=== PATIENT | female | born 1945 | race Caucasian/White ===

== ENCOUNTER 2017-01-25 19:14 | Observation (INO) | payer MEDICARE, MEDICAID ==
[2017-01-25] MEDS ORDERED: Albuterol/Ipratropium 3.0-0.5 MG/3 ML Neb Soln NEB ONE (19:30)
[2017-01-25] MEDS ORDERED: methylPREDNISolone Sodium Succinate 125 MG/2 ML SDV IVPUSH ONE (19:30)
--- NOTE | 2017-01-25 19:32 | EDM.PDOC ---
ED HPI GENERAL MEDICAL PROBLEM - General Chief Complaint: Respiratory Problem Stated Complaint: TROUBLE BREATHING Time Seen by Provider: 01/25/17 19:25 Source of Information: Reports: Patient, EMS, Family History Limitations: Reports: Respiratory Distress - History of Present Illness INITIAL COMMENTS - FREE TEXT/NARRATIVE: 71 y.o.w.f. smoker with a H/O chronic bronchitis and COPD came by EMS tpo the ed due to worsening of SOB. No C/P no N/V/D or any other acute medical issue. Pt is not on prednison at this time. No other acute medical issues at this time. BP 173/53 RR 22 pulse ox 96% 0n 2 liters Temp 36.6 pulse 74 Onset Date: 01/23/17 Onset Time: 08:00 Duration: Hour(s):, Day(s):, Getting Worse, Intermittent Location: Reports: Chest - Related Data Allergies Allergy/AdvReac Type Severity Reaction Status Date / Time IVP dye Allergy Swelling Uncoded 01/25/17 23:30 Home Meds: Home Meds FLUoxetine [PROzac] 40 mg PO DAILY 08/17/13 [History] Clopidogrel Bisulfate [Clopidogrel] 75 mg PO DAILY 09/08/15 [History] Esomeprazole [NexIUM] 40 mg PO DAILY 09/08/15 [History] Metoprolol Succinate [Toprol XL 100mg] 150 mg PO DAILY 09/08/15 [History] Naproxen Sodium [Aleve] 220 mg DAILY 09/08/15 [History] atorvaSTATin [Lipitor] 40 mg PO DAILY 09/08/15 [History] metFORMIN [Glucophage] 500 mg PO BIDMEALS 09/08/15 [History] Hydrochlorothiazide 25 mg PO DAILY 01/25/17 [History] Lisinopril 40 mg PO DAILY 01/25/17 [History] Past Medical History Cardiovascular History: Reports: CAD, High Cholesterol, Hypertension, [place], Prior Cardiac Arrest, Stents, Other (See Below) Other Cardiovascular History: KS x 3, cardiac tamponade Gastrointestinal History: Reports: GERD, GI Bleed Genitourinary History: Reports: Chronic Renal Insuffiency, Renal Disease Other Genitourinary History: L kidney 'not functioning well' 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: Other (See Below) Other OB/BYN History: fallopian tube & ovary removed, also surgery on other fallopian tube Neurological History: Reports: Concussion, Neuropathy, Diabetic Psychiatric History: Reports: Anxiety, Depression Endocrine/Metabolic History: Reports: Diabetes, Type II, Obesity/BMI 30+ Hematologic History: Reports: Blood Transfusion(s) Oncologic (Cancer) History: Reports: Breast - Infectious Disease History Infectious Disease History: Reports: Chicken Pox, Measles, Mumps, Pertussis ( Whooping Cough), Shingles - Past Surgical History HEENT Surgical History: Reports: Oral Surgery, Tonsillectomy Cardiovascular Surgical History: Reports: Carotid Stents Female Surgical History: Reports: Salpingo-Oophorectomy Social & Family History - Tobacco Use Smoking Status *Q: Current Every Day Smoker Years of Tobacco use: 50 Packs/Tins Daily: 0.5 Used Tobacco, but Quit: No Second Hand Smoke Exposure: Yes - Caffeine Use Caffeine Use: Reports: Coffee, Tea - Alcohol Use Days Per Week of Alcohol Use: 0 - Recreational Drug Use Recreational Drug Use: No - Living Situation & Occupation Living situation: Reports: Single Occupation: Retired ED ROS GENERAL - Review of Systems Review Of Systems: See Below Constitutional: Reports: No Symptoms HEENT: Reports: No Symptoms Respiratory: Reports: Shortness of Breath Cardiovascular: Reports: No Symptoms Endocrine: Reports: No Symptoms GI/Abdominal: Reports: No Symptoms : Reports: No Symptoms Musculoskeletal: Reports: No Symptoms Skin: Reports: No Symptoms Neurological: Reports: No Symptoms Psychiatric: Reports: No Symptoms Hematologic/Lymphatic: Reports: No Symptoms Immunologic: Reports: No Symptoms ED EXAM, GENERAL - Physical Exam Exam: See Below Exam Limited By: No Limitations General Appearance: Alert, WD/WN, Moderate Distress Eye Exam: Bilateral Eye: Normal Inspection Ears: Normal External Exam Ear Exam: Bilateral Ear: Auricle Normal Nose: Normal Inspection Throat/Mouth: Normal Inspection Head: Atraumatic, Normocephalic Neck: Normal Inspection, Supple Respiratory/Chest: Respiratory Distress, Decreased Breath Sounds, Wheezing, Prolonged Expiration Cardiovascular: Normal Peripheral Pulses, Regular Rate, Rhythm, No Edema Peripheral Pulses: 1+: Radial (R) GI/Abdominal: Normal Bowel Sounds, Soft (Female) Exam: Deferred Rectal (Female) Exam: Deferred Back Exam: Normal Inspection, Full Range of Motion Extremities: Normal Inspection, Normal Range of Motion, Non-Tender, No Pedal Edema Neurological: Alert, Oriented, CN II-XII Intact, Normal Cognition Psychiatric: Normal Affect, Normal Mood Skin Exam: Warm, Dry, Intact, Normal Color Lymphatic: No Adenopathy Course - Vital Signs Text/Narrative:: 71 y.o.w.f. smoker with a H/O chronic bronchitis and COPD came by EMS tpo the ed due to worsening of SOB. No C/P no N/V/D or any other acute medical issue. Pt is not on prednison at this time. No other acute medical issues at this time. BP 173/53 RR 22 pulse ox 96% 0n 2 liters Temp 36.6 pulse 74 PE: Thin 71 y.o.w.f in resp distress with cough (prod) CXR: COPD, no infiltrate, official report is pending Impression: COPD exacerbation. Chronic bronchitis Tx: Duoneb, Albuterol neb. Solumedrol Reexam: improved 30% Plan: Admit tp mills for obs and Tx. Last Recorded V/S: Last Vital Signs Temp 36.4 C 01/26/17 04:32 Pulse 59 L 01/25/17 19:25 Resp 20 01/26/17 04:32 BP 163/76 H 01/26/17 04:32 Pulse Ox 94 L 01/26/17 04:32 - Orders/Labs/Meds Orders: Active Orders 24 hr Category Date Time Status Chest 1V Frontal [CR] Stat Exams 01/25/17 19:30 Taken Sodium Chloride 0.9% [Saline Flush] Med 01/25/17 19:41 Active 10 ml FLUSH ASDIRECTED PRN Saline Lock Insert [OM.PC] Routine Oth 01/25/17 19:41 Ordered Medication Orders Albuterol (Proventil Neb Soln) 2.5 mg NEB Q4H [facility] Last Admin: 01/26/17 04:32 Dose: 2.5 mg Admin: 01/26/17 01:27 Dose: 2.5 mg Lactated Ringer's (Ringers, Lactated) 1,000 mls @ 125 mls/hr IV ASDIRECTED [facility] Last Admin: 01/25/17 22:11 Dose: 125 mls/hr Methylprednisolone Sodium Succinate (Solu-Medrol) 125 mg IVPUSH Q8H [facility] Last Admin: 01/26/17 04:32 Dose: 125 mg Ondansetron HCl (Zofran Odt) 4 mg PO Q4H PRN PRN Reason: nausea, able to take PO Sodium Chloride (Saline Flush) 10 ml FLUSH ASDIRECTED PRN PRN Reason: Keep Vein Open Last Admin: 01/25/17 19:42 Dose: 10 ml Meds: Medications Generic Name Dose Route Start Last Admin Trade Name Freq PRN Reason Stop Dose Admin Albuterol 2.5 mg 01/26/17 01:00 01/26/17 04:32 Proventil Neb Soln NEB 2.5 mg Q4H [facility] Administration Lactated Ringer's 1,000 mls @ 125 mls/hr 01/25/17 21:00 01/25/17 22:11 Ringers, Lactated IV 125 mls/hr ASDIRECTED [facility] Administration Methylprednisolone Sodium Succinate 125 mg 01/26/17 04:00 01/26/17 04:32 Solu-Medrol IVPUSH 125 mg Q8H [facility] Administration Ondansetron HCl 4 mg 01/25/17 20:51 Zofran Odt PO Q4H PRN nausea, able to take PO Sodium Chloride 10 ml 01/25/17 19:41 01/25/17 19:42 Saline Flush FLUSH 10 ml ASDIRECTED PRN Administration Keep Vein Open Discontinued Medications Generic Name Dose Route Start Last Admin Trade Name Freq PRN Reason Stop Dose Admin Albuterol 2.5 mg 01/25/17 20:25 01/25/17 20:29 Proventil Neb Soln NEB 01/25/17 20:26 2.5 mg ONETIME ONE Administration Albuterol 2.5 mg 01/25/17 21:00 01/25/17 21:47 Proventil Neb Soln NEB Not Given Q4H [facility] Albuterol/Ipratropium 3 ml 01/25/17 19:30 01/25/17 19:40 Duoneb 3.0-0.5 Mg/3 Ml NEB 01/25/17 19:31 3 ml ONETIME ONE Administration Methylprednisolone Sodium Succinate 125 mg 01/25/17 19:30 01/25/17 19:40 Solu-Medrol IVPUSH 01/25/17 19:31 125 mg ONETIME ONE Administration Methylprednisolone Sodium Succinate 125 mg 01/25/17 21:00 01/25/17 21:47 Solu-Medrol IVPUSH Not Given Q8H [facility] Departure - Departure Time of Disposition: 22:00 Disposition: Refer to Observation Condition: Fair Clinical Impression: COPD exacerbation - Discharge Information - My Orders Last 24 Hours: My Active Orders 01/25/17 19:30 Chest 1V Frontal [CR] Stat 01/25/17 19:41 Sodium Chloride 0.9% [Saline Flush] 10 ml FLUSH ASDIRECTED PRN Saline Lock Insert [OM.PC] Routine - Assessment/Plan Last 24 Hours: My Active Orders 01/25/17 19:30 Chest 1V Frontal [CR] Stat 01/25/17 19:41 Sodium Chloride 0.9% [Saline Flush] 10 ml FLUSH ASDIRECTED PRN Saline Lock Insert [OM.PC] Routine
[2017-01-25] MEDS ORDERED: Sodium Chloride 0.9% 10 ML Syringe FLUSH PRN (19:41)
[2017-01-25] MEDS ORDERED: Albuterol 0.083% 2.5 MG/3 ML Neb Soln NEB ONE (20:25)
[2017-01-25] MEDS ORDERED: Ondansetron 4 MG Tab.DIS PO PRN (20:51)
[2017-01-25] MEDS ORDERED: methylPREDNISolone Sodium Succinate 125 MG/2 ML SDV IVPUSH SCH (21:00)
[2017-01-25] MEDS ORDERED: Albuterol 0.083% 2.5 MG/3 ML Neb Soln NEB SCH (21:00)
[2017-01-25] MEDS: Lactated Ringers 1,000 ML IV SCH (22:11)
[2017-01-26] MEDS: Albuterol 0.083% 2.5 MG/3 ML Neb Soln NEB SCH ×3 (01:27→08:39)
[2017-01-26] MEDS: methylPREDNISolone Sodium Succinate 125 MG/2 ML SDV IVPUSH SCH ×3 (04:32→20:07)
[2017-01-26] MEDS: Lactated Ringers 1,000 ML IV SCH ×3 (05:42→23:35)
--- NOTE | 2017-01-26 10:43 | CR ---
INDICATION: Shortness of breath. CHEST: AP upright portable view of the chest 01/25/2017, compared with 2015 and 08/17/2013, revealed evidence of ASHD with mild cardiomegaly. The aorta is calcified in the arch area. Increased flattening of diaphragm leaves is noted, compatible with exacerbation of and/or progression of COPD. No definite evidence of CHF, infiltrate or effusion was identified. IMPRESSION: 1. COPD, progressive or exacerbated. 2. ASHD with mild cardiomegaly. 3. Post axillary node dissection and probable right lumpectomy - c/w breast CA. MTDD
[2017-01-26] MEDS ORDERED: Metoprolol Succinate 100 MG Tab.ER *PTOM PO SCH (11:30)
[2017-01-26] MEDS ORDERED: methylPREDNISolone Sodium Succinate 125 MG/2 ML SDV IVPUSH SCH (11:30)
[2017-01-26] MEDS ORDERED: Albuterol/Ipratropium 3.0-0.5 MG/3 ML Neb Soln NEB PRN (11:30)
[2017-01-26] MEDS ORDERED: Lisinopril 40 MG Tab *PTOM PO SCH (11:30)
[2017-01-26] MEDS ORDERED: Clopidogrel 75 MG Tab *PTOM PO SCH (11:30)
[2017-01-26] MEDS ORDERED: NEXIUM 40 MG PO SCH (11:30)
[2017-01-26] MEDS ORDERED: Levofloxacin/Dextrose 5%-Water 500 MG in Premix Bag 1 BAG IV SCH (12:00)
[2017-01-26] MEDS ORDERED: FLUOXETINE 40 MG PO SCH (12:15)
[2017-01-26] MEDS: metFORMIN 500 MG Tab *PTOM PO SCH ×2 (17:10→20:17)
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
[2017-01-27] MEDS: methylPREDNISolone Sodium Succinate 125 MG/2 ML SDV IVPUSH SCH (02:59)
[2017-01-27 03:13] VITALS: BP 170/69
[2017-01-27] MEDS ORDERED: Hydrochlorothiazide 25 MG Tab PO SCH (09:00)
--- NOTE | 2017-01-28 02:36 | DISCH ---
DISCHARGE DATE: 01/27/2017 HOSPITAL COURSE: Luann Ennis is a 71-year-old female admitted for observation care. Acute exacerbation of chronic obstructive pulmonary disease. Infection less likely. I spoke implications, expectations, and concerns and smoking cessation. Chest x-ray, reviewed and appropriate. Laboratory studies uncomplicated. OBJECTIVE: VITAL SIGNS: Stable. NECK: Benign. Thyroid small. CHEST: Some coarse rhonchi, but much better exchange. HEART: Regular without ectopy or murmur. ABDOMEN: Benign. IMPRESSION: Acute exacerbation of chronic obstructive pulmonary disease. PLAN: We will switch to oral steroids, other intervention options, has only albuterol at home. Cessation of smoking. Complementary care and well being, discharge home on reducing doses of prednisone and azithromycin (Z-Rigoberto). FOLLOWUP: Follow up in 2 weeks' time at [facility]. /[id number] LEXX/KINGS
== END 2017-01-27 12:35 | disposition home or self-care (01) ==
LOC: FB.ED 19:14 → FB.MS 20:51
PROVIDERS: ADMIT Family Medicine; ATTEND Family Medicine
DX: J44.1 Chronic obstructive pulmonary disease with (acute) exacerbation (principal); I10 Essential (primary) hypertension; E78.5 Hyperlipidemia, unspecified; I25.10 Atherosclerotic heart disease of native coronary artery without angina pectoris; Z95.2 Presence of prosthetic heart valve; Z79.84 Long term (current) use of oral hypoglycemic drugs; Z79.899 Other long term (current) drug therapy; Z95.5 Presence of coronary angioplasty implant and graft; F17.200 Nicotine dependence, unspecified, uncomplicated; Z91.041 Radiographic dye allergy status
CPT/HCPCS: 36415; 71010; 80053; 81001; 82962; 85027; 87070; 87077; 87205; 94640; 96361; 96374; 96375; 96376; 99285; A9270; G0378; J1956; J2930; J7050; J7120; J7620; 99217; 99218; 99284